=== PATIENT | male | born 1980 | race Caucasian/White ===

== ENCOUNTER 2024-03-09 18:54 | Inpatient (IN) ==
[2024-03-09] MEDS: ASPIRIN CHEW 324 MG PO STA (19:20)
[2024-03-09 19:21] LABS: Basophils # (auto) 0.04 K/uL (0.00-0.20); Basophils % (auto) 0.4 %; Eosinophils # (auto) 0.12 K/uL (0.00-0.50); Eosinophils % (auto) 1.3 %; Immature Granulocytes # (auto) 0.02 K/uL (0.01-0.20); Immature Granulocytes % (auto) 0.2 %; Lymphocytes # (auto) 3.58 K/uL (1.20-3.40); Lymphocytes % (auto) 38.1 %; Mean Corpuscular Hemoglobin 29.9 pg (25.0-34.0); Mean Corpuscular Hgb Conc 34.1 g/dL (32.0-36.0); Mean Corpuscular Volume 87.8 fL (80.0-100.0); Mean Platelet Volume 10.3 fL (9.4-12.4); Monocytes % (auto) 8.5 %; Neutrophils # (auto) 4.83 K/uL (1.40-6.50); Neutrophils % (auto) 51.5 %; Platelet Count 233 K/uL (130-400); RDW Coefficient of Variation 12.9 % (11.5-14.5); RDW Standard Deviation 41.3 fL (36.4-46.3); Red Blood Count 5.01 M/uL (4.70-6.10); White Blood Count 9.39 K/ul (4.8-10.8)
[2024-03-09] MEDS: fentaNYL citrate PF 100 MCG/2 ML VIAL ONE ×2 (19:27→20:18)
[2024-03-09] MEDS: ONDANSETRON INJ 2 MG/ML 2 ML VIAL ONE (19:27)
[2024-03-09] MEDS: fentaNYL citrate PF 100 MCG/2 ML VIAL IV PRN (19:29)
[2024-03-09] MEDS: ONDANSETRON INJ 2 MG/ML 2 ML VIAL IV STA (19:30)
--- NOTE | 2024-03-09 19:32 | Emergency Department Note ---
Impression & Plan Acute lateral wall myocardial infarction, Chest pain ED Provider Note NAME: ANGIE ROMERO AGE: 43 SEX: M : 1980 ARRIVES VIA: Walk-In INFORMANT: Patient, ED PROVIDER(S): Jaswant Mae DO CHIEF COMPLAINT: Chest pain HPI: The patient is a 43-year-old male who presented to the emergency department for an evaluation of chest pain. The patient states he has anterior chest pain that goes into his neck and into his jaw. He also states his pain goes into his bilateral upper extremities. The patient denies having any shortness of breath or diaphoresis. He has been mowing grass all day on a riding mower. He denies having any lower extremity swelling or pain. The patient states the pain began approximately 5 PM. He came to the emergency department with his significant other through triage. ROS: See above HPI for pertinent positives & negatives. A total of 10 systems reviewed and were otherwise negative. PAST MEDICAL HISTORY: See Below PAST SURGICAL HISTORY: See Below FAMILY HISTORY: See Below SOCIAL HISTORY: See Below HOME MEDICATIONS: See Below ALLERGIES: See Below VITALS: See Below PHYSICAL EXAMINATION: GENERAL: The patient is awake and alert. The patient is somewhat anxious appearing EYES: The conjunctivae are clear. The pupils are round and reactive. EARS, NOSE, MOUTH AND THROAT: The nose is without any evidence of any deformity. NECK: The neck is nontender and supple. RESPIRATORY: Normal respiratory effort is noted there is no evidence of wheezing rhonchi or rales CARDIOVASCULAR: Regular rate and rhythm noted there no murmurs rubs or gallops normal S1 normal S2. GASTROINTESTINAL: The abdomen is soft. Abdomen is nontender. MUSCULOSKELETAL/EXTREMITIES: There is no evidence of gross deformity full range of motion is noted in the hips and shoulders. SKIN: There is no obvious evidence of any rash. There are no petechiae, pallor or cyanosis noted. NEUROLOGIC: Patient is awake alert and oriented x3 MEDICAL DECISION MAKING: The patient is a 43-year-old male who presented to the emergency department through triage for an evaluation of chest pain. The patient had an EKG in triage. This was found to be abnormal and the nursing staff brought the EKG to the doctor station. The EKG was identified as abnormal and the patient was brought directly to room B1 and he was made a heart alert. I discussed the patient's laboratory and radiographic studies with him. I discussed patient's presentation with the bag cutter as well as the on-call [facility]. The patient was evaluated in the emergency department by the bag cutter. He was felt to be a good candidate for cardiac catheterization. The patient was agreeable with this plan. He was treated with aspirin as well as fentanyl and Zofran. He was also given Brilinta in the emergency department after he was evaluated by the culinary specialist. The patient was somewhat improved in the emergency department. A second EKG was obtained which showed continued ischemic changes. Triage Nursing notes reviewed. Prior medical records reviewed Vital Signs: reviewed and remarkable for no significant abnormalities Differential diagnosis: Cardiac ischemia, aortic dissection, pulmonary embolism, pneumothorax, pneumonia, pericarditis, myocarditis, esophageal rupture, GERD, cholecystitis, pancreatitis, musculoskeletal, as well as other pathologies. ER treatment provided: See below Diagnostics interpreted by me: ECG: EKG was obtained in the emergency department. My interpretation is normal sinus rhythm at 84 bpm. There is no ectopy. ST segment depressions were noted in the inferior and apical leads. There was subtle ST elevation in the high lateral leads. This appears to be consistent with acute lateral wall DE with reciprocal changes. No previous tracing was available A second EKG was obtained in the emergency department. My interpretation is normal sinus rhythm at 91 bpm. There is no ectopy. Increasing ST segment elevation was noted in the high lateral lead with reciprocal changes now noted in the inferior apical and low lateral leads. This appears to be consistent with a lateral wall DE. Cardiac Monitoring: An order was placed for continuous cardiac monitoring. The monitor shows a rate of 80 bpm with sinus rhythm. Laboratory studies: As stated above and show below. Imaging studies: See below. Radiographic imaging was reviewed by myself Consultation(s): I discussed this case with Dr. Gabriel who is on-call for cardiac catheterization. I discussed this case with Dr. Rowley who is on-call for [facility] ED COURSE: Procedures: none Critical Care: I have personally spent greater than 35 minutes of critical care time in the direct management of this patient. This includes bedside care, interpretation of diagnostic studies, and testing, discussion with consultants, patient, and family members, and other required patient management activities. This 35 minutes is in excess of all separately billable procedures. Past Med/Surg History Medical History (Updated 03/09/24 @ 23:07 by Jaswant Mae DO) Hypertension CHRISTEL (obstructive sleep apnea) GERD (gastroesophageal reflux disease) Abscess of left groin Family History (Updated 03/09/24 @ 21:06 by SUMANTH Andrea) Other Lung disease Myocardial infarction Social History Smoking Status: Current every day smoker Tobacco Type: Cigarettes Cigarettes Per Day: 20; Hx Alcohol Use: Yes Alcohol type: beer Hx Substance Use: No Preferred Language: [place] Assistant Spa Manager Required: No Beliefs That Will Affect Care: None Current Living Situation: Spouse and Family Other Information That Helps Us Care for You: No Feels Safe at Home: Yes Safety Concerns: Feels Safe At This Time Allergies Allergies Allergy/AdvReac Type Severity Reaction Status Date / Time No Known Allergies Allergy Verified 12/06/22 17:44 Home Meds Home Medications Medication Instructions Recorded Confirmed amlodipine 10 mg tablet 10 mg PO DAILY 12/06/22 12/06/22 omeprazole magnesium 20 mg 20 mg PO DAILY PRN 12/06/22 12/06/22 tablet,delayed release (Prilosec HEARTBURN/INDIGESTION OTC) Previous Rx's Medication Instructions Recorded ondansetron HCl 4 mg tablet 4 mg PO Q6H PRN nausea and 12/06/22 vomiting #10 tabs Results & Data (ED) Vital Signs Vital Signs - 24 hr 03/09/24 18:56 03/09/24 18:59 03/09/24 19:18 Temperature 37 C Temperature Source Temporal Artery Scan Pulse Rate 95 H 99 H 98 H Pulse Rate from SpO2 Sensor Pulse Rhythm Regular Respiratory Rate 18 22 Respiratory Effort / Characteristics Non-Labored Respiratory Depth Normal Blood Pressure 171/94 H Blood Pressure Mean 119 Pulse Oximetry 98 99 Oxygen Delivery Method Room Air Room Air Sepsis Recent Fever Within 48 Hours No Sepsis New/Unexplained Change in Mental Status No Sepsis Action Taken by Nursing No Action Required 03/09/24 19:18 03/09/24 19:18 03/09/24 19:20 Temperature Temperature Source Pulse Rate 97 H 100 H Pulse Rate from SpO2 Sensor 98 H 102 H Pulse Rhythm Respiratory Rate 13 22 Respiratory Effort / Characteristics Respiratory Depth Blood Pressure 157/90 H Blood Pressure Mean 104 Pulse Oximetry 99 99 Oxygen Delivery Method Sepsis Recent Fever Within 48 Hours Sepsis New/Unexplained Change in Mental Status Sepsis Action Taken by Nursing 03/09/24 19:23 03/09/24 19:30 03/09/24 19:31 Temperature Temperature Source Pulse Rate 94 H Pulse Rate from SpO2 Sensor 94 H Pulse Rhythm Respiratory Rate 15 Respiratory Effort / Characteristics Respiratory Depth Blood Pressure 142/96 H Blood Pressure Mean 130 Pulse Oximetry 99 98 Oxygen Delivery Method Room Air Sepsis Recent Fever Within 48 Hours Sepsis New/Unexplained Change in Mental Status Sepsis Action Taken by Nursing 03/09/24 19:31 Temperature Temperature Source Pulse Rate 92 H Pulse Rate from SpO2 Sensor 91 H Pulse Rhythm Respiratory Rate 18 Respiratory Effort / Characteristics Respiratory Depth Blood Pressure Blood Pressure Mean Pulse Oximetry 99 Oxygen Delivery Method Sepsis Recent Fever Within 48 Hours Sepsis New/Unexplained Change in Mental Status Sepsis Action Taken by Assisted Medications Current Medication List: was personally reviewed by me Laboratory Data Attestation: I reviewed the patient's lab results. 03/09/24 19:04 03/09/24 19:04 Lab Results 03/09/24 Range/Units 19:04 WBC 9.39 (4.8-10.8) K/ul RBC 5.01 (4.70-6.10) M/uL Hgb 15.0 (14.0-18.0) g/dl Hct 44.0 (42.0-52.0) % MCV 87.8 (80.0-100.0) fL MCH 29.9 (25.0-34.0) pg MCHC 34.1 (32.0-36.0) g/dL RDW Std Deviation 41.3 (36.4-46.3) fL RDW Coeff of Evelyne 12.9 (11.5-14.5) % Plt Count 233 (130-400) K/uL MPV 10.3 (9.4-12.4) fL Immature Gran % (Auto) 0.2 % Neut % (Auto) 51.5 % Lymph % (Auto) 38.1 % [place] % (Auto) 8.5 % Eos % (Auto) 1.3 % Baso % (Auto) 0.4 % Neut # (Auto) 4.83 (1.40-6.50) K/uL Lymph # (Auto) 3.58 H (1.20-3.40) K/uL [place] # (Auto) 0.80 H (0.11-0.59) K/uL Eos # (Auto) 0.12 (0.00-0.50) K/uL Baso # (Auto) 0.04 (0.00-0.20) K/uL Immature Gran # (Auto) 0.02 (0.01-0.20) K/uL Sodium 136 (136-145) mmol/L Potassium 3.3 L (3.5-5.1) mmol/L Chloride 101 (98-107) mmol/L Carbon Dioxide 26 (21-32) mmol/L Anion Gap 9 (3-11) BUN 10 (6-23) mg/dl Creatinine 0.78 (0.6-1.4) mg/dl Est Cr Clr Drug Dosing 144.4 ml/min Est GFR ( Amer) 126.3 ml/min Est GFR (Non-Af Amer) 109.0 ml/min BUN/Creatinine Ratio 12.8 (10-20) Glucose 106 H (70-99(Fasting)) mg/dl Calcium 9.1 (8.6-10.3) mg/dl Total Bilirubin 0.7 (0.2-1.0) mg/dl AST 12 L (13-39) U/L ALT 9 (7-52) U/L Alkaline Phosphatase 51 (34-104) U/L Troponin I High Sens 12.7 (0-20) pg/ml Total Protein 7.4 (6.0-8.3) gm/dl Albumin 4.6 (3.4-5.0) gm/dl Globulin 2.8 (2.5-4.0) gm/dl Albumin/Globulin Ratio 1.6 (0.9-2) Lipase 17 (11-82) U/L Administered Medications Fentanyl Citrate (Fentanyl Citrate Pf 100 Mcg/2 Ml Vial) 50 mcg IV Q15M PRN PRN Reason: Pain Stop: 03/23/24 19:23 Last Admin: 03/09/24 19:29 Dose: 50 mcg Documented By: MADELINW Insulin Aspart (Insulin Aspart Per Unit Charge) 0 units SC ACHS [facility] Stop: 04/08/24 20:59 Last Admin: 03/09/24 21:46 Dose: Not Given Documented By: CF Metoprolol Tartrate (Metoprolol Tartrate 25 Mg Tab) 12.5 mg PO BID [facility] Stop: 04/08/24 20:59 Last Admin: 03/09/24 21:39 Dose: 12.5 mg Documented By: BELKIS Discontinued Medications Aspirin (Aspirin Chew 324 Mg) 324 mg PO NOW STA Stop: 03/09/24 19:11 Last Admin: 03/09/24 19:20 Dose: 324 mg Documented By: HUAN Fentanyl Citrate (Fentanyl Citrate Pf 100 Mcg/2 Ml Vial) Confirm Administered Dose 100 mcg .ROUTE .STK-MED ONE Stop: 03/09/24 19:27 Last Admin: 03/09/24 19:27 Dose: Not Given Documented By: HUAN Fentanyl Citrate (Fentanyl Citrate Pf 100 Mcg/2 Ml Vial) Confirm Administered Dose 100 mcg .ROUTE .STK-MED ONE Stop: 03/09/24 19:35 Last Increment: 03/09/24 20:18 Dose: 50 mcg Documented By: CHANCE Heparin Sodium (Porcine) (Heparin (Porcine) 1000 Unit/Ml 10 Ml ([place] Etl Developer Use Only)) Confirm Administered Dose 10,000 units .ROUTE .STK-MED ONE Stop: 03/09/24 19:35 Last Admin: 03/09/24 20:18 Dose: 10,000 units Documented By: CHANCE Heparin Sodium (Porcine) (Heparin (Porcine) 1000 Unit/Ml 10 Ml ([employer] Etl Developer Use Only)) Confirm Administered Dose 10,000 units .ROUTE .STK-MED ONE Stop: 03/09/24 20:18 Last Admin: 03/09/24 20:19 Dose: 1,000 units Documented By: CHANCE Heparin Sodium/Sodium Chloride (Heparin In Nss Infusion 1000 Unit/500 Ml (2 U/Ml) Bag) Confirm Administered Dose 3,000 units IV .STK-MED ONE Stop: 03/09/24 19:35 Last Admin: 03/09/24 20:58 Dose: Not Given Documented By: BELKIS Ioversol (Optiray 350) Confirm Administered Dose 1 ml .ROUTE .STK-MED ONE Stop: 03/09/24 19:36 Last Admin: 03/09/24 20:37 Dose: 150 ml Documented By: TRU Lidocaine HCl (Lidocaine 1% Local 20 Ml Vial) Confirm Administered Dose 1 ml .ROUTE .STK-MED ONE Stop: 03/09/24 19:39 Last Admin: 03/09/24 20:08 Dose: 1 ml Documented By: TRU Midazolam HCl (Midazolam Hcl 1 Mg/Ml 2ml Vial) Confirm Administered Dose 2 mg .ROUTE .STK-MED ONE Stop: 03/09/24 19:34 Last Admin: 03/09/24 20:18 Dose: 2 mg Documented By: CHANCE Nicardipine HCl (Nicardipine Hcl Inj 2.5 Mg/Ml 10 Ml Amp) Confirm Administered Dose 25 mg .ROUTE .STK-MED ONE Stop: 03/09/24 19:35 Last Admin: 03/09/24 20:09 Dose: 25 mg Documented By: TRU Nitroglycerin/Dextrose (Nitroglycerin/D5w 100mcg/Ml 20ml Syr) Confirm Administered Dose 2,000 mcg .ROUTE .STK-MED ONE Stop: 03/09/24 19:36 Last Admin: 03/09/24 20:08 Dose: 2,000 mcg Documented By: TRU Ondansetron HCl (Ondansetron Inj 2 Mg/Ml 2 Ml Vial) 4 mg IV NOW STA Stop: 03/09/24 19:25 Last Admin: 03/09/24 19:30 Dose: 4 mg Documented By: HUAN Ondansetron HCl (Ondansetron Inj 2 Mg/Ml 2 Ml Vial) Confirm Administered Dose 4 mg .ROUTE .STK-MED ONE Stop: 03/09/24 19:27 Last Admin: 03/09/24 19:27 Dose: Not Given Documented By: HUAN Potassium Chloride (Potassium Chloride Crtab 20 Meq Tabcr) 40 meq PO NOW STA Stop: 03/09/24 21:16 Last Admin: 03/09/24 21:39 Dose: 40 meq Documented By: BELKIS Ticagrelor (Ticagrelor 90 Mg Tab) Confirm Administered Dose 90 mg .ROUTE .STK- MED ONE Stop: 03/09/24 19:26 Last Admin: 03/09/24 19:35 Dose: 90 mg Documented By: HUAN Ticagrelor (Ticagrelor 90 Mg Tab) Confirm Administered Dose 90 mg .ROUTE .STK- MED ONE Stop: 03/09/24 19:48 Last Admin: 03/09/24 20:08 Dose: 90 mg Documented By: MANUFACTURING MANAGEMENT ASSOCIATE Imaging Data Attestation: I personally reviewed and interpreted this imaging study as follows: My Impression: 1 view chest x-ray was obtained in the emergency department. My interpretation is no definite infiltrate or free air, final report pending. Discharge Plan Visit Data Chief Complaint: Chest Pain Stated Complaint: CHEST PAIN, BACK OF NECK PAIN, ARM PAIN ED Provider: Jaswant Mae Discharge Problem: Acute lateral wall myocardial infarction, Chest pain Patient Disposition: Admitted As Inpatient Discharge Instructions Interventions: ED Discharge Assessment Last Done: 03/09/24 19:45 Discharge Problem: Chest pain Qualifiers: Chest pain type: unspecified Qualified Code(s): R07.9 - Chest pain, unspecified
[2024-03-09] MEDS: TICAGRELOR 90 MG TAB ONE ×2 (19:35→20:08)
[2024-03-09 19:37] LABS: Albumin Globulin Ratio 1.6 (0.9-2); Albumin Level 4.6 gm/dl (3.4-5.0); BUN Creatinine Ratio 12.8 (10-20); Bilirubin,Total 0.7 mg/dl (0.2-1.0); Calcium 9.1 mg/dl (8.6-10.3); Creatinine Clr Calc Pharmacy 144.4 ml/min; Est GFR (African American) 126.3 ml/min; Globulin 2.8 gm/dl (2.5-4.0); Potassium 3.3 mmol/L (3.5-5.1); Total Protein 7.4 gm/dl (6.0-8.3)
[2024-03-09 19:43] LABS: Troponin I High Sensitivity 12.7 pg/ml (0-20)
--- NOTE | 2024-03-09 19:49 | Pre Anesthesia Assessment ---
Date of Service March 09, 2024 Pre Sedation Assessment Vital Signs Temp Pulse Resp BP Pulse Ox O2 Del Method 03/09/24 19:31 92 H 18 99 03/09/24 19:31 142/96 H 03/09/24 19:30 94 H 15 98 03/09/24 19:23 99 Room Air 03/09/24 19:20 100 H 22 99 03/09/24 19:18 97 H 13 99 03/09/24 19:18 157/90 H 03/09/24 19:18 98 H 03/09/24 18:59 99 H 22 99 Room Air 03/09/24 18:56 98.6 F 95 H 18 171/94 H 98 Room Air Cardiovascular + regular rate Respiratory + respiratory effort normal Pre-Sedation Airway Assessment Smoking Status: Current every day smoker ASA: ASA3 Notes The planned sedation has been discussed with the patient. Informed Consent was obtained. I have identified the patient, determined the appropriateness of sedation and have assessed the patient immediately prior to the procedure. All medicine(s) and interventions are by my order.
--- NOTE | 2024-03-09 19:53 | Cardiology Consultation ---
Date of Consultation March 09, 2024 Assessment & Plan (1) Acute NH: Presentation consistent with lateral STEMI and recommend proceeding with emergent cardiac catheterization and likely primary PCI. No apparent contraindications to procedure. Discussed risks, benefits, alternatives of procedure with patient and they are willing to proceed. Further recommendations pending findings of coronary angiography. History of Present Illness Attending Physician: Tucker Gabriel MD History of Present Illness 43-year-old man here with acute chest pain and ECG concerning for acute NH. Patient seen emergently in the ED after heart alert activated after second ECG. No prior cardiac history. Cardiac risk factors include hypertension, ongoing smoking. Also with a history of GERD. Chest pain began approximately 5:30 PM around 90 minutes prior to arrival while mowing the lawn with a riding mower. Describes substernal chest tightness radiating down both arms (left greater than sign right) and up into his jaw. Denies similar symptoms in the past. Pain at its worst 7 out of 10. Pain after nitroglycerin, aspirin, fentanyl 5 out of 10. Hemodynamically stable. EKG showed sinus rhythm with lateral ST elevations. Family history: No premature CAD Social history: , 3 kids. 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 [employer] Allergies Allergy/AdvReac Type Severity Reaction Status Date / Time No Known Allergies Allergy Verified 12/06/22 17:44 Home Medications Medication Instructions Recorded Confirmed Type amlodipine 10 mg tablet 10 mg PO DAILY 12/06/22 12/06/22 History omeprazole magnesium 20 mg 20 mg PO DAILY PRN 12/06/22 12/06/22 History tablet,delayed release (Prilosec HEARTBURN/INDIGESTION OTC) ondansetron HCl 4 mg tablet 4 mg PO Q6H PRN nausea and 12/06/22 Rx vomiting #10 tabs Patient History Medical History Hypertension Abscess of left groin Social History Smoking Status: Current every day smoker Tobacco Type: Cigarettes Preferred Language: Samoan Feels Safe at Home: Yes Review of Systems Review of Systems: Not obtained in the setting of emergent situation Physical Exam Physical Exam: General: Uncomfortable HEENT: Sclerae anicteric Lungs: Clear to auscultation anteriorly Cardiac: Regular rate and rhythm, no murmurs. Vascular: 2+ radial Abdomen: Soft, nontender Extremities: Well perfused, no peripheral edema Neuro: Nonfocal Psych: Alert orient x3, normal affect and mood Results & Data Vital Signs (Past 12 Hours) Vital Signs Temp Pulse Resp BP Pulse Ox O2 Del Method 03/09/24 19:31 92 H 18 99 03/09/24 19:31 142/96 H 03/09/24 19:30 94 H 15 98 03/09/24 19:23 99 Room Air 03/09/24 19:20 100 H 22 99 03/09/24 19:18 97 H 13 99 03/09/24 19:18 157/90 H 03/09/24 19:18 98 H 03/09/24 18:59 99 H 22 99 Room Air 03/09/24 18:56 98.6 F 95 H 18 171/94 H 98 Room Air PG Care Time/CCT Total # of Minutes Spent Total Time Spent with Patient: Total time spent is greater than 50% in coordination of care (as documented) at patient's floor/unit and/or counseling patient: Coding Level of Care Code 59844 OFFICE CONSULT LVL Diagnoses Acute NH I21.9
[2024-03-09] MEDS: LIDOCAINE 1% LOCAL 20 ML VIAL ONE (20:08)
[2024-03-09] MEDS: NITROGLYCERIN/D5W 100MCG/ML 20ML SYR ONE (20:08)
[2024-03-09] MEDS: niCARdipine HCL INJ 2.5 MG/ML 10 ML AMP ONE (20:09)
[2024-03-09] MEDS: MIDAZOLAM HCL 1 MG/ML 2ML VIAL ONE (20:18)
[2024-03-09] MEDS: HEPARIN (PORCINE) 1000 UNIT/ML 10 ML (CATH LAB USE ONLY) ONE ×2 (20:18→20:19)
[2024-03-09] MEDS: OPTIRAY 350 ONE (20:37)
[2024-03-09] MEDS ORDERED: ACETAMINOPHEN 325 MG TAB PO PRN (20:40)
--- NOTE | 2024-03-09 20:48 | Post Anesthesia Assessment ---
Date of Service March 09, 2024 Post Sedation Assessment Vital Signs Temp Pulse Resp BP Pulse Ox O2 Del Method 03/09/24 19:31 92 H 18 99 03/09/24 19:31 142/96 H 03/09/24 19:30 94 H 15 98 03/09/24 19:23 99 Room Air 03/09/24 19:20 100 H 22 99 03/09/24 19:18 97 H 13 99 03/09/24 19:18 157/90 H 03/09/24 19:18 98 H 03/09/24 18:59 99 H 22 99 Room Air 03/09/24 18:56 98.6 F 95 H 18 171/94 H 98 Room Air Recovery Score Activity: Moves 4 extremities Respiration: Deep Breath/Cough Circulation: +/-20% PreAnes Value Consciousness: Fully Awake Oxygen Saturation: O2 needed for >90% Discharge Sedation Level of Care: Fast Track Phase II Post Sedation Plan On clinical assessment, the patient appears to have tolerated the sedation without complications. Patient is recovering as anticipated. Patient will continue to be monitored by nursing and may be discharged when sedation discharge criteria are met per below protocol. Upon Completions of procedure up to 15 minutes continue every 5 minute vital signs and the P.A.R. score; then discharge to a Phase I or Fast Track to Phase II per the following guidelines: * Discharge Patient to appropriate Phase II area if PAR is 8 or greater or return to pre- procedure baseline. The post - procedure orders will be as directed. * If PAR score is less than 8 or not return to pre-procedure baseline then patient will follow Phase I monitoring till PAR is reached for Phase II. The Phase I may be done in procedure room or may call to secure a Phase I area. * If naloxone or flumazenil are used for reversal, hold in Phase I for continued monitoring from when last reversal dose was given for a minimum of 60 minutes or longer pending the nurse and/or physician discretion of patient condition before discharge to Phase II. Please call the Sedation Physician to re-evaluate and complete post-note for discharge to Phase II area. Do NOT discharge from procedure sedation or Phase 1 until post- sedation evaluation note is complete by procedure /sedation MD Sedation Discharge Instructions to be given to the patient at discharge to home.
[2024-03-09] MEDS ORDERED: DEXTROSE 50% 50 ML SYRINGE IV PRN (20:50)
[2024-03-09] MEDS ORDERED: GLUCOSE 40% GEL 15 GM TUBE PO PRN (20:50)
[2024-03-09] MEDS ORDERED: GLUCOSE 10 TAB/TUBE PO PRN (20:50)
[2024-03-09] MEDS ORDERED: GLUCAGON FOR INJ 1 MG VIAL SQ PRN (20:50)
[2024-03-09] MEDS ORDERED: CARBOHYDRATES FOR HYPOGLYCEMIA PO PRN (20:50)
--- NOTE | 2024-03-09 20:56 | Cardiac Catheterization ---
[facility] Data: Hospital Aide Cardiac Status Clinical evaluation leading to the procedure CAD Presenation: STEMI Anginal Classification: CCS IV Diagnostic Physicians Name: Tucker Gabriel MD Closure Device Recommendations: PCI without planned CABG Cardiac Cath Procedure Full Procedure Date March 09, 2024 Pre-Procedure Diagnosis Pre-Procedure Diagnosis: STEMI AUC Score AUC Score: 9 Post-Procedure Diagnosis Post-Procedure Diagnosis: Severe CAD and Successful PCI Procedure(s) Performed Procedure(s) Performed: Coronary Angiography, Left Heart Cath, Drug Eluting Stent and Ultrasound Guided Vascular Access Skin Fitter Tucker Gabriel MD National Account Representative(s) [place] Estimated Blood Loss Estimated Blood Loss: 5 Medication(s) Medication(s): Fentanyl, Heparin, Lidocaine 1%, Nicardipine, Nitroglycerin and Versed Medication(s): Ticagrelor Summary of Findings Indication: STEMI/Heart Alert Access: 6 Fr right radial artery under ultrasound guidance Catheters: EBU 3.5 guide, diagnostic JR4 Findings: LM -normal caliber, no significant disease LAD -large caliber vessel, 30-40% proximal stenosis at takeoff of D1. Mid and distal LAD without significant disease and wraps around apex. Medium caliber D1 acute 100% proximal occlusion. Circumflex -large caliber vessel, 30% mid segment disease. Large OM1 without significant disease. Large OM 2 without disease. RCA -medium caliber, dominant, angiographically normal. RPDA, RPL without significant disease. LVEDP -18 -- PCI -- Antithrombotic therapy: Heparin, ticagrelor Procedure: Left main cannulated with EBU 3.5 guide Inspector Tubes 50 wire passed across lesion into distal vessel Proximal D1 lesion predilated with 2.5 compliant balloon Dilated lesion stented with 2.5 x 15 mm Ramone drug-eluting stent Stent post-dilated with 2.75 noncompliant balloon IC vasodilators administered for spasm Post procedure KEVIN 3 flow, stent well expanded with minimal residual stenosis and no apparent cardiac complications. Arterial Closure: TR band Summary: 1. Acute 100% proximal first diagonal 2. Mild non-culprit coronary artery disease -30-40% proximal LAD 30% mid circumflex 3. Borderline intracardiac filling pressure 4. Successful PCI of proximal first diagonal branch with single drug-eluting stent (2.5 x 15 mm [place]; postdilated with 2.75 NC). Recommendations: Admit to ICU for continued monitoring Loaded with ticagrelor 180 mg in Hospital Aide Continue dual-antiplatelet therapy for at least 1 year. Trend troponins until peak, Check Echo Uptitrate beta-brianna/JAY as BP allows High-dose statin Consult cardiac Rehab Hemodynamics Rest Ao:: 106/63/75 Final Ao: 116/78/101 LV: 119/18 Recommendations Recommendations: PCI without planned CABG Specimens Specimens: None Radiation Exposure (mGy) 1733 Contrast (mls) 150 Procedural Complication(s) None Disposition ICU I attest to the content of the Intraoperative Record and any orders documented therein. Any exceptions are noted below. [facility] Card Cath Procedure Codes Cardiac Catheterization Procedure 1: Cardiovascular Cath Procedures: 55136 Coronaries and LHC (+/-LV) Therapeutic Services & Ancillary Procedure 1: Cardiovascular Tx and Anc Procedures: 74096 Ultrasonic Guidance Vascular Access Moderate Sedation Procedure 1: Sedation/Anesthesia: 04893 Mod Sedation by the same physician;Init15 Min Child Age 5 & Up Procedure 2: Sedation/Anesthesia: 65835 Mod Sedation by the same physician; Ea [id number] Minutes Stenting Procedure 1: Cardiovascular Stent Procedures: 77900 Perc transluminal revascularization of acute sub/total occl, aMI PG Care Time/CCT Total # of Minutes Spent Total Time Spent with Patient: Total time spent is greater than 50% in coordination of care (as documented) at patient's floor/unit and/or counseling patient:
--- NOTE | 2024-03-09 21:17 | Critical Care Consultation ---
Date of Consultation March 09, 2024 Assessment & Plan (1) Acute AZ: (2) CHRISTEL (obstructive sleep apnea): (3) Hypertension: (4) Smoker: Plan Reason Critically Ill: 43 YOM presents to the ICU post PCI and TANVI to diagnoal secondary to STEMI Neuro - NO acute needs CAM ICU: Negative Cardiac - Acute STEMI, HTN, HLD, CAD - Post PCI and TANVI to diagonal- currently chest pain free - BB, high intensity statin, JAY, initiated by cardiology service - DAPT therapy with ASA and Brilinta initiated by cardiology- initial notes rec 12 month therapy - ECHO in morning - Follow hemodynamics and rhythms through PM- trend troponin to peak - further management on risk reduction strategy Respiratory - Smoker, CHRISTEL - Current smoker - will need smoking cessation - Educated on need to avoid smoking following TANVI - Offer Nicotene patch if needed - ON CPAP nasal 10CM H20 at home- patient reports he has not worn this in a long time- re-educated on overall mortality reduction GI - GERD - Continue PPI RENAL/LYTES - NO acute needs - ICU electrolyte protocol - NO acute needs ENDO - NO acute needs - HGB A1c in am- adjust therapies as indicated HEME - No acute needs ID - NO concern at this time for infective process LINES/IV ACCESS - PIV, Right TR BAND site Continue use of these lines DVT PROPHYLAXIS - SCDS DISPO: ICU until hemodynamics and rhythm proven stable post PCI I have personally spent 45 minutes of critical care time in the direct management of this patient. This is a life/limb threatening event. This includes time spent evaluating patient, direct bedside care, chart review, placing orders, interpretation of diagnostic studies, discussion with consultants, patient, and family members, as well as other required patient management activities. This time is exclusive of all separately billable procedures, and separate from and in addition to any other critical care service time. Thank you for allowing us to participate in the care of this patient. Please refer to my attending physician's documentation for any further recommendations. History of Present Illness Reason for Consultation: STEMI post PCI to diagonal Requesting Physician: Tucker Gabriel MD Attending Physician: Joe Rowley MD History of Present Illness 43 YOM current 1ppd smoker, with medical history of: HTN, GERD, CHRISTEL non compliant with home CPAP. Family history of Grandfather with AZ in 50s that he from. Patient reports that he had onset of chest pain today around 1700- 1730. The pain was located in the center of his chest and felt like "two fists squeezing and pressing", the pain then radiated to his left arm and half his right arm. This continued to progress to his neck and jaw. It was not associated with any nausea, vomiting, or difficulty breathing. He has never had this type of pain before. He feels at worst his pain got was 7/10 but mostly stayed in the 5 range. He was evaluated in the EMD and was noted to have ST elevations in lateral (I AVL) and reciprocal changes to inferior leads. He was given asa, nitro, and fentanyl for pain, and loaded on Brilinta. Heart alert was called and patient was taken urgently to the medical laboratory technician, where he underwent angiography. He did get PCI with TANVI to the diagonal. He was noted to have mild other non-culprit coronary artery disease. LVEDP was 18. Patient arrived to the ICU awake and alert, hemodynamically stable on no vasoactive medications. He is currently pain free. CODE: FULL Allergies Allergy/AdvReac Type Severity Reaction Status Date / Time No Known Allergies Allergy Verified 12/06/22 17:44 Home Medications Medication Instructions Recorded Confirmed Type amlodipine 10 mg tablet 10 mg PO DAILY 12/06/22 12/06/22 History omeprazole magnesium 20 mg 20 mg PO DAILY PRN 12/06/22 12/06/22 History tablet,delayed release (Prilosec HEARTBURN/INDIGESTION OTC) ondansetron HCl 4 mg tablet 4 mg PO Q6H PRN nausea and 12/06/22 Rx vomiting #10 tabs ticagrelor 90 mg tablet (Brilinta) 90 mg PO BID #60 tabs 03/10/24 Rx Patient History Medical History (Updated 03/09/24 @ 23:07 by Jaswant Mae DO) Hypertension CHRISTEL (obstructive sleep apnea) GERD (gastroesophageal reflux disease) Abscess of left groin Family History (Updated 03/09/24 @ 21:06 by SUMANTH Andrea) Other Lung disease Myocardial infarction Social History Smoking Status: Current every day smoker Tobacco Type: Cigarettes Cigarettes Per Day: 20; Hx Alcohol Use: Yes Alcohol type: beer Hx Substance Use: No Preferred Language: Kiswahili Instructional Design Specialist Required: No Beliefs That Will Affect Care: None Current Living Situation: Spouse and Family Feels Safe at Home: Yes Review of Systems Review of Systems: REVIEW OF SYSTEMS: Constitutional: No fever, sweats or chills Eyes: No diplopia, no worsening or blurred vision ENT: normal hearing, no trouble swallowing Respiratory: (+) chronic cough and dyspnea, smoker Cardiovascular: (+) chest pain- resolved, Abdomen: No pain, nausea, vomiting, diarrhea or constipation Musculoskeletal: No joint pain, calf pain, swelling Neurologic: No weakness, numbness/tingling, or balance problems Psychiatric: No anxiety or depression Skin: No rash or itch Physical Exam Physical Exam: PHYSICAL EXAM: General: awake, alert, no apparent distress Head: Normocephalic, atraumatic ENT: PERRL, EOMI, no pharyngeal exudate, mucous membranes moist Neuro: AAO x 3, speech clear and appropriate, strength intact bilaterally 5/5, sensation intact and equal all extremities and dermatomes, no pronator drift Chest: equal rise and fall of the chest, no accessory muscle use, no heaves or thrills, Clear to auscultation, on room air, Cardiac: Regular rate and rhythm, telemetry reviewed- NSR no ectopy, skin warm dry, cap refill <3 seconds, peripheral pulses +2 no JVD, no murmur, no edema, right radial TR band in place CV/NV status of right hand and fingers is normal. GI: NABS x 4 quadrants, soft, nontender to palpation, no rebound, guarding or tenderness : Spontaneously voiding, no pain, no CVA tenderness, Extremities: Normal inspection, no peripheral edema or erythema, calfs nontender to palpation Psych: Normal mood and affect Skin: no rash or erythema Results & Data Results & Data Vital Signs (Past 12 Hours) Vital Signs Temp Pulse Resp BP Pulse Ox O2 Del Method 03/09/24 19:31 92 H 18 99 03/09/24 19:31 142/96 H 03/09/24 19:30 94 H 15 98 03/09/24 19:23 99 Room Air 03/09/24 19:20 100 H 22 99 03/09/24 19:18 97 H 13 99 03/09/24 19:18 157/90 H 03/09/24 19:18 98 H 03/09/24 18:59 99 H 22 99 Room Air 03/09/24 18:56 37 C 95 H 18 171/94 H 98 Room Air Laboratory Results Abnormal lab results 03/09/24 03/09/24 03/09/24 Range/Units 19:04 20:13 20:26 Lymph # (Auto) 3.58 H (1.20-3.40) K/uL [place] # (Auto) 0.80 H (0.11-0.59) K/uL Activ Coag Time Kaolin 234 H 233 H (94-140) SECONDS Potassium 3.3 L (3.5-5.1) mmol/L Glucose 106 H (70-99(Fasting)) mg/dl AST 12 L (13-39) U/L Medications Administered Fentanyl Citrate (Fentanyl Citrate Pf 100 Mcg/2 Ml Vial) 50 mcg IV Q15M PRN PRN Reason: Pain Stop: 03/23/24 19:23 Last Admin: 03/09/24 19:29 Dose: 50 mcg Documented By: HUAN Discontinued Medications Aspirin (Aspirin Chew 324 Mg) 324 mg PO NOW STA Stop: 03/09/24 19:11 Last Admin: 03/09/24 19:20 Dose: 324 mg Documented By: HUAN Fentanyl Citrate (Fentanyl Citrate Pf 100 Mcg/2 Ml Vial) Confirm Administered Dose 100 mcg .ROUTE .STK-MED ONE Stop: 03/09/24 19:27 Last Admin: 03/09/24 19:27 Dose: Not Given Documented By: HUAN Fentanyl Citrate (Fentanyl Citrate Pf 100 Mcg/2 Ml Vial) Confirm Administered Dose 100 mcg .ROUTE .STK-MED ONE Stop: 03/09/24 19:35 Last Increment: 03/09/24 20:18 Dose: 50 mcg Documented By: CHANCE Heparin Sodium (Porcine) (Heparin (Porcine) 1000 Unit/Ml 10 Ml (Helpdesk Manager Use Only)) Confirm Administered Dose 10,000 units .ROUTE .STK-MED ONE Stop: 03/09/24 19:35 Last Admin: 03/09/24 20:18 Dose: 10,000 units Documented By: CHANCE Heparin Sodium (Porcine) (Heparin (Porcine) 1000 Unit/Ml 10 Ml (Helpdesk Manager Use Only)) Confirm Administered Dose 10,000 units .ROUTE .STK-MED ONE Stop: 03/09/24 20:18 Last Admin: 03/09/24 20:19 Dose: 1,000 units Documented By: CHANCE Heparin Sodium/Sodium Chloride (Heparin In Nss Infusion 1000 Unit/500 Ml (2 U/Ml) Bag) Confirm Administered Dose 3,000 units IV .STK-MED ONE Stop: 03/09/24 19:35 Last Admin: 03/09/24 20:58 Dose: Not Given Documented By: BELKIS Ioversol (Optiray 350) Confirm Administered Dose 1 ml .ROUTE .STK-MED ONE Stop: 03/09/24 19:36 Last Admin: 03/09/24 20:37 Dose: 150 ml Documented By: TUR Lidocaine HCl (Lidocaine 1% Local 20 Ml Vial) Confirm Administered Dose 1 ml .ROUTE .STK-MED ONE Stop: 03/09/24 19:39 Last Admin: 03/09/24 20:08 Dose: 1 ml Documented By: TRU Midazolam HCl (Midazolam Hcl 1 Mg/Ml 2ml Vial) Confirm Administered Dose 2 mg .ROUTE .STK-MED ONE Stop: 03/09/24 19:34 Last Admin: 03/09/24 20:18 Dose: 2 mg Documented By: CHANCE Nicardipine HCl (Nicardipine Hcl Inj 2.5 Mg/Ml 10 Ml Amp) Confirm Administered Dose 25 mg .ROUTE .STK-MED ONE Stop: 03/09/24 19:35 Last Admin: 03/09/24 20:09 Dose: 25 mg Documented By: TRU Nitroglycerin/Dextrose (Nitroglycerin/D5w 100mcg/Ml 20ml Syr) Confirm Administered Dose 2,000 mcg .ROUTE .STK-MED ONE Stop: 03/09/24 19:36 Last Admin: 03/09/24 20:08 Dose: 2,000 mcg Documented By: TRU Ondansetron HCl (Ondansetron Inj 2 Mg/Ml 2 Ml Vial) 4 mg IV NOW STA Stop: 03/09/24 19:25 Last Admin: 03/09/24 19:30 Dose: 4 mg Documented By: HUAN Ondansetron HCl (Ondansetron Inj 2 Mg/Ml 2 Ml Vial) Confirm Administered Dose 4 mg .ROUTE .STK-MED ONE Stop: 03/09/24 19:27 Last Admin: 03/09/24 19:27 Dose: Not Given Documented By: HUAN Ticagrelor (Ticagrelor 90 Mg Tab) Confirm Administered Dose 90 mg .ROUTE .STK- MED ONE Stop: 03/09/24 19:26 Last Admin: 03/09/24 19:35 Dose: 90 mg Documented By: HJW Ticagrelor (Ticagrelor 90 Mg Tab) Confirm Administered Dose 90 mg .ROUTE .STK- MED ONE Stop: 03/09/24 19:48 Last Admin: 03/09/24 20:08 Dose: 90 mg Documented By: BUTTON BROACHER ECG Additional Comments: Normal sinus rhythm Septal infarct , age undetermined Lateral injury pattern ACUTE AZ / STEMI Abnormal ECG When compared with ECG of 09-MAR-2024 19:01, (unconfirmed) No significant change was found Coding Level of Care Code 37679 CRITICAL CARE 1ST 30-74M Diagnoses Acute [place] I21.9 CHRISTEL (obstructive sleep apnea) G47.33 Hypertension I10 Smoker F17.200
[2024-03-09] MEDS: POTASSIUM CHLORIDE CRTAB 20 MEQ TABCR PO STA (21:39)
[2024-03-09] MEDS: METOPROLOL TARTRATE 25 MG TAB PO SCH (21:39)
[2024-03-09] MEDS: INSULIN ASPART PER UNIT CHARGE SC SCH (21:46)
[2024-03-10 04:52] LABS: Basophils # (auto) 0.03 K/uL (0.00-0.20); Basophils % (auto) 0.3 %; Eosinophils # (auto) 0.04 K/uL (0.00-0.50); Eosinophils % (auto) 0.3 %; Hematocrit (blood only) 43.1 % (42.0-52.0); Hemoglobin 14.3 g/dl (14.0-18.0); Immature Granulocytes # (auto) 0.04 K/uL (0.01-0.20); Immature Granulocytes % (auto) 0.3 %; Lymphocytes # (auto) 1.64 K/uL (1.20-3.40); Lymphocytes % (auto) 14.2 %; Mean Corpuscular Hemoglobin 29.3 pg (25.0-34.0); Mean Corpuscular Hgb Conc 33.2 g/dL (32.0-36.0); Mean Corpuscular Volume 88.3 fL (80.0-100.0); Mean Platelet Volume 10.1 fL (9.4-12.4); Monocytes # (auto) 0.93 K/uL (0.11-0.59); Monocytes % (auto) 8.1 %; Neutrophils # (auto) 8.83 K/uL (1.40-6.50); Neutrophils % (auto) 76.8 %; Platelet Count 211 K/uL (130-400); RDW Coefficient of Variation 13.1 % (11.5-14.5); RDW Standard Deviation 42.5 fL (36.4-46.3); Red Blood Count 4.88 M/uL (4.70-6.10); White Blood Count 11.51 K/ul (4.8-10.8)
[2024-03-10 05:35] LABS: BUN Creatinine Ratio 14.1 (10-20); Calcium 8.7 mg/dl (8.6-10.3); Chol HDL Ratio 4.5 (0-5); Est GFR (Non-African American) 118.2 ml/min; Magnesium 1.9 mg/dl (1.7-2.4); Phosphorus 2.8 mg/dl (2.5-4.9); Potassium 4.2 mmol/L (3.5-5.1); Troponin I High Sensitivity 18883.9 pg/ml (0-20)
[2024-03-10] MEDS: MAGNESIUM SULFATE / D5W 1 GM/100 ML BAG IV SCH (06:26)
--- NOTE | 2024-03-10 07:32 | Critical Care Progress Note ---
Date of Service March 10, 2024 Assessment & Plan (1) Acute VT: (2) CHRISTEL (obstructive sleep apnea): (3) Hypertension: (4) Smoker: Plan Reason Critically Ill: 43 YOM presents to the ICU post PCI and TANVI to diagnoal secondary to STEMI Neuro - NO acute needs CAM ICU: Negative Cardiac - Acute STEMI, HTN, HLD, CAD - Post PCI and TANVI to diagonal 03/09/2024 - BB, high intensity statin, JAY, initiated by cardiology service - DAPT therapy with ASA and Brilinta Respiratory - Smoker, CHRISTEL - Current smoker - will need smoking cessation - Educated on need to avoid smoking following TANVI -CHRISTEL - ON CPAP nasal 10CM H20 at home- patient reports he has not worn this in a long time- re-educated on overall mortality reduction --Recreational marijuana smoker Advised to quit GI - GERD - Continue PPI RENAL/LYTES - - ICU electrolyte protocol ENDO - ICU hyperglycemia protocol HEME - No acute needs ID - NO concern at this time for infective process --Prophylaxis VTE: None GI: Pantoprazole Lines: Peripheral Diet: Cardiac Plan: In/out: -900, urine output 1000 Risk factors for patient coronary artery disease include smoking, noncompliance with CHRISTEL as well as family history of heart problems in maternal grandfather. Continue to trend troponins till it starts to starts to downtrend Continue with dual antiplatelet therapy along with beta-brianna and lisinopril. Usually on amlodipine at home Disposition as per cardiology Please note the above document was generated using voice recognition software. It may contain grammatical, syntax or spelling errors.Any formal questions or concerns about the content, text or information contained within the body of this dictation should be directly addressed to the provider for clarification. Admission and Anticipated Discharge Date Admission Date: March 09, 2024 Subjective Patient seen and examined at bedside. No acute distress. Overnight patient had NSVT which resolved on its own. He complains of chest heaviness but no chest pain. No nausea vomiting. He was able to tolerate his breakfast. Denies any headache, no blurry vision. Review of Systems 2 Review of Systems: All systems reviewed & are unremarkable except as noted in Subjective Physical Exam 2 Physical Exam: Constitutional: No acute distress HEENT: EOMI, PERRLA Respiratory system: Good air entry bilaterally, no wheeze, minimal crackles bilaterally, mild right-sided rhonchi CVS: S1-S2 positive, no murmurs or gallops Abdomen: Soft, nontender, nondistended, positive bowel sounds x4 Extremities: +2 pulses bilaterally radialis/ dorsalis pedis, no cyanosis, no edema Neuro: Awake alert oriented x3 Psych: Normal mood and affect G/U: No Marks Skin: no rashes, warm and dry Lymphatic: no cervical or axillary lymphadenopathy Results & Data Results & Data Vital Signs (Past 12 Hours) Vital Signs Temp Pulse Resp BP BP Pulse Ox O2 Del Method 03/10/24 06:07 36.6 C 03/10/24 06:00 59 L 96 03/10/24 06:00 153/95 H 03/10/24 05:30 69 95 03/10/24 05:00 145/86 H 03/10/24 05:00 66 9 L 94 03/10/24 04:30 78 13 96 03/10/24 04:18 67 19 95 03/10/24 04:00 69 18 95 03/10/24 04:00 132/91 03/10/24 03:30 73 18 95 03/10/24 03:00 134/86 03/10/24 03:00 61 16 95 03/10/24 02:45 66 20 94 03/10/24 02:30 59 L 20 96 03/10/24 02:15 85 17 95 03/10/24 02:00 65 20 94 03/10/24 02:00 127/86 03/10/24 01:45 63 18 94 03/10/24 01:30 60 6 L 94 03/10/24 01:15 85 13 96 03/10/24 01:00 65 15 97 03/10/24 01:00 137/93 03/10/24 00:45 63 21 95 03/10/24 00:30 62 19 95 03/10/24 00:16 73 19 95 03/10/24 00:15 63 21 93 03/10/24 00:00 36.6 C 03/10/24 00:00 133/93 03/10/24 00:00 67 14 96 03/10/24 00:00 65 03/09/24 23:45 67 20 91 03/09/24 23:30 66 26 H 91 03/09/24 23:15 62 5 L 92 03/09/24 23:00 64 14 92 03/09/24 23:00 119/81 03/09/24 22:45 74 13 94 03/09/24 22:30 73 16 94 03/09/24 22:19 20 123/81 97 Room Air 03/09/24 22:15 76 17 96 03/09/24 22:01 81 23 98 03/09/24 22:01 123/81 03/09/24 22:00 80 24 97 03/09/24 21:45 77 18 98 03/09/24 21:30 72 19 97 03/09/24 21:15 75 16 96 03/09/24 21:00 124/84 03/09/24 21:00 80 14 95 03/09/24 20:47 90 10 L 03/09/24 20:46 137/95 FiO2 03/10/24 06:07 03/10/24 06:00 03/10/24 06:00 03/10/24 05:30 03/10/24 05:00 03/10/24 05:00 03/10/24 04:30 03/10/24 04:18 21 03/10/24 04:00 03/10/24 04:00 03/10/24 03:30 03/10/24 03:00 03/10/24 03:00 03/10/24 02:45 03/10/24 02:30 03/10/24 02:15 03/10/24 02:00 03/10/24 02:00 03/10/24 01:45 03/10/24 01:30 03/10/24 01:15 03/10/24 01:00 03/10/24 01:00 03/10/24 00:45 03/10/24 00:30 03/10/24 00:16 21 03/10/24 00:15 03/10/24 00:00 03/10/24 00:00 03/10/24 00:00 03/10/24 00:00 03/09/24 23:45 03/09/24 23:30 03/09/24 23:15 03/09/24 23:00 03/09/24 23:00 03/09/24 22:45 03/09/24 22:30 03/09/24 22:19 03/09/24 22:15 03/09/24 22:01 03/09/24 22:01 03/09/24 22:00 03/09/24 21:45 03/09/24 21:30 03/09/24 21:15 03/09/24 21:00 03/09/24 21:00 03/09/24 20:47 03/09/24 20:46 Laboratory Results 03/10/24 04:31 03/10/24 04:31 Coding Level of Care Code 81295 SUB INP/OBS CARE 2/35MIN Diagnoses Acute VT I21.9 CHRISTEL (obstructive sleep apnea) G47.33 Hypertension I10 Smoker F17.200
[2024-03-10 07:39] LABS: Estimated Average Glucose 103 mg/dl; Hemoglobin A1C 5.2 % (4.5-5.6)
--- NOTE | 2024-03-10 07:47 | XRay Report ---
XR chest 1V portable CLINICAL HISTORY: Chest pain, nonspecific COMPARISON STUDY: No previous studies for comparison. FINDINGS: Lung volumes are normal. Lungs are clear. There is no pneumothorax or pleural effusion. Car diac size is normal. Mediastinal contours are normal. Subtle interstitial thickening is noted with connelly btle Vincent B-lines. IMPRESSION: Findings suggestive of mild pulmonary edema. ACT 112: Negative or not required by law. Electronically signed by: Noam Vo M.D. 03/10/2024 7:46 AM
--- NOTE | 2024-03-10 08:33 | History & Physical Report ---
Date of Service March 09, 2024 Assessment & Plan (1) STEMI (ST elevation myocardial infarction): Plan: 43-year-old male with past medical history significant for impaired fasting glucose, obstructive sleep apnea noncompliant with CPAP, hypertension ongoing tobacco abuse presents with chest pain and found to have ST elevated AZ s/p cardiac cath and stent to proximal first diagonal. 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 Around 6:30 PM when he was sitting on a chair noticed chest pain in mid chest radiating into both arms and later to his jaw and neck 7/10 in severity. No sweating. No dizziness. No nausea. Has on and shortness of breath and attributes to smoking. And came to the ER and found to ST elevations in lead I and aVL. Currently s/p stent to proximal first diagonal. Resting comfortably. Currently chest pain resolved. Has mild headache. No blurred vision. No runny nose or sore throat. Has always has some cough from smoking. No fevers. No abdominal pain. Normal bowel and bladder movements. ST elevated AZ S/p cardiac cath and stent to proximal first diagonal Also has 30 to 40% stenosis in proximal LAD and 30% in mid circumflex On Brilinta, aspirin, lisinopril and metoprolol tartrate Will repeat cardiac enzymes and echo Cardiology on board Close monitoring ICU Impaired fasting glucose Will follow HbA1c levels Obstructive sleep apnea Noncompliant CPAP Needs counseling Hypertension Currently placed on lisinopril metoprolol Will monitor Tobacco abuse Needs counseling DVT prophylaxis SCDs for now Disposition Close monitoring ICU Level 1 full code Admission and Anticipated Discharge Date Admission Date: March 09, 2024 History of Present Illness Chief Complaint: ST elevated AZ Primary Care Provider: Cali Tang MD 43-year-old male with past medical history significant for impaired fasting glucose, obstructive sleep apnea noncompliant with CPAP, hypertension ongoing tobacco abuse presents with chest pain and found to have ST elevated AZ s/p cardiac cath and stent to proximal first diagonal. 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 Around 6:30 PM when he was sitting on a chair noticed chest pain in mid chest radiating into both arms and later to his jaw and neck 7/10 in severity. No sweating. No dizziness. No nausea. Has on and shortness of breath and attributes to smoking. And came to the ER and found to ST elevations in lead I and aVL. Currently s/p stent to proximal first diagonal. Resting comfortably. Currently chest pain resolved. Has mild headache. No blurred vision. No runny nose or sore throat. Has always has some cough from smoking. No fevers. No abdominal pain. Normal bowel and bladder movements. Past medical history as mentioned above. Past surgical history. Bilateral cataract surgery, excision of subcutaneous tumor in the pelvis. Social history. . Smokes 1 pack a day for last 25years. Alcohol rarely. No drug use. Family history. Mother had cancer. Father had diabetes. Paternal grandfather had diabetes. Allergies Allergy/AdvReac Type Severity Reaction Status Date / Time No Known Allergies Allergy Verified 12/06/22 17:44 Home Medications Medication Instructions Recorded Confirmed Type amlodipine 10 mg tablet 10 mg PO DAILY 12/06/22 12/06/22 History omeprazole magnesium 20 mg 20 mg PO DAILY PRN 12/06/22 12/06/22 History tablet,delayed release (Prilosec HEARTBURN/INDIGESTION OTC) ondansetron HCl 4 mg tablet 4 mg PO Q6H PRN nausea and 12/06/22 Rx vomiting #10 tabs ticagrelor 90 mg tablet (Brilinta) 90 mg PO BID #60 tabs 03/10/24 Rx Past Med/Surg History Medical History (Updated 03/10/24 @ 08:28 by Joe Rowley MD) Hypertension CHRISTEL (obstructive sleep apnea) GERD (gastroesophageal reflux disease) Abscess of left groin Family History (Updated 03/09/24 @ 21:06 by SUMANTH Andrea) Other Lung disease Myocardial infarction Social History Smoking Status: Current every day smoker Tobacco Type: Cigarettes Cigarettes Per Day: 20; Hx Alcohol Use: Yes Alcohol type: beer Hx Substance Use: No Preferred Language: [place] Diamond [employer] Polisher Required: No Beliefs That Will Affect Care: None Current Living Situation: Spouse and Family Feels Safe at Home: Yes Review of Systems Review of Systems: All systems reviewed & are unremarkable except as noted in HPI & below Physical Exam Physical Exam: General- Not in distress Head- atraumatic Eyes- PERRL, EOMI. ENT- oropharynx clear Neck- supple, no JVD. Lungs- clear to auscultation no wheezing or crackles. Heart- regular rhythm; no murmur, no gallop. Abdomen- normal bowel sounds, soft, nontender, no distension Extremities- no pretibial edema, no erythema see. Right wrist cath site no drainage or swelling seen. Neuro- alert, oriented PERRL, EOMI; no facial palsy; no dysarthria; moves extremities. Results & Data Results & Data Vital Signs (Past 12 Hours) Vital Signs Temp Pulse Resp BP Pulse Ox O2 Del Method 03/09/24 21:00 124/84 03/09/24 21:00 80 14 95 03/09/24 20:47 90 10 L 03/09/24 20:46 137/95 03/09/24 19:31 92 H 18 99 03/09/24 19:31 142/96 H 03/09/24 19:30 94 H 15 98 03/09/24 19:23 99 Room Air 03/09/24 19:20 100 H 22 99 03/09/24 19:18 97 H 13 99 03/09/24 19:18 157/90 H 03/09/24 19:18 98 H 03/09/24 18:59 99 H 22 99 Room Air 03/09/24 18:56 37 C 95 H 18 171/94 H 98 Room Air Diagnostic Findings Laboratory Results WBC 11.51 K/ul (4.8-10.8) H 03/10/24 04:31 RBC 4.88 M/uL (4.70-6.10) 03/10/24 04:31 Hgb 14.3 g/dl (14.0-18.0) 03/10/24 04:31 Hct 43.1 % (42.0-52.0) 03/10/24 04:31 MCV 88.3 fL (80.0-100.0) 03/10/24 04:31 MCH 29.3 pg (25.0-34.0) 03/10/24 04:31 MCHC 33.2 g/dL (32.0-36.0) 03/10/24 04:31 RDW Std Deviation 42.5 fL (36.4-46.3) 03/10/24 04:31 RDW Coeff of Evelyne 13.1 % (11.5-14.5) 03/10/24 04:31 Plt Count 211 K/uL (130-400) 03/10/24 04:31 MPV 10.1 fL (9.4-12.4) 03/10/24 04:31 Immature Gran % (Auto) 0.3 % 03/10/24 04:31 Neut % (Auto) 76.8 % 03/10/24 04:31 Lymph % (Auto) 14.2 % 03/10/24 04:31 Barren % (Auto) 8.1 % 03/10/24 04:31 Eos % (Auto) 0.3 % 03/10/24 04:31 Baso % (Auto) 0.3 % 03/10/24 04:31 Neut # (Auto) 8.83 K/uL (1.40-6.50) H 03/10/24 04:31 Lymph # (Auto) 1.64 K/uL (1.20-3.40) 03/10/24 04:31 Barren # (Auto) 0.93 K/uL (0.11-0.59) H 03/10/24 04:31 Eos # (Auto) 0.04 K/uL (0.00-0.50) 03/10/24 04:31 Baso # (Auto) 0.03 K/uL (0.00-0.20) 03/10/24 04:31 Immature Gran # (Auto) 0.04 K/uL (0.01-0.20) 03/10/24 04:31 Activ Coag Time Kaolin 233 SECONDS (94-140) H 03/09/24 20:26 Sodium 135 mmol/L (136-145) L 03/10/24 04:31 Potassium 4.2 mmol/L (3.5-5.1) D 03/10/24 04:31 Chloride 106 mmol/L (98-107) 03/10/24 04:31 Carbon Dioxide 23 mmol/L (21-32) 03/10/24 04:31 Anion Gap 6 (3-11) 03/10/24 04:31 BUN 9 mg/dl (6-23) 03/10/24 04:31 Creatinine 0.64 mg/dl (0.6-1.4) 03/10/24 04:31 Est Cr Clr Drug Dosing 176.0 ml/min 03/10/24 04:31 Est GFR ( Amer) 137.0 ml/min 03/10/24 04:31 Est GFR (Non-Af Amer) 118.2 ml/min 03/10/24 04:31 BUN/Creatinine Ratio 14.1 (10-20) 03/10/24 04:31 Glucose 109 mg/dl (70-99(Fasting)) H 03/10/24 04:31 POC Glucose 96 mg/dl (70-99) 03/10/24 07:30 Estimat Average Glucose 103 mg/dl 03/10/24 04:31 Hemoglobin A1c 5.2 % (4.5-5.6) 03/10/24 04:31 Calcium 8.7 mg/dl (8.6-10.3) 03/10/24 04:31 Phosphorus 2.8 mg/dl (2.5-4.9) 03/10/24 04:31 Magnesium 1.9 mg/dl (1.7-2.4) 03/10/24 04:31 Total Bilirubin 0.7 mg/dl (0.2-1.0) 03/09/24 19:04 AST 12 U/L (13-39) L 03/09/24 19:04 ALT 9 U/L (7-52) 03/09/24 19:04 Alkaline Phosphatase 51 U/L (34-104) 03/09/24 19:04 Troponin I High Sens 45173.9 pg/ml (0-20) H* D 03/10/24 04:31 Total Protein 7.4 gm/dl (6.0-8.3) 03/09/24 19:04 Albumin 4.6 gm/dl (3.4-5.0) 03/09/24 19:04 Globulin 2.8 gm/dl (2.5-4.0) 03/09/24 19:04 Albumin/Globulin Ratio 1.6 (0.9-2) 03/09/24 19:04 Triglycerides 84 mg/dl (0-150) 03/10/24 04:31 Cholesterol 153 mg/dl (0-200) 03/10/24 04:31 LDL Cholesterol, Calc 102 mg/dl 03/10/24 04:31 VLDL Cholesterol, Calc 17 mg/dl (0-30) 03/10/24 04:31 HDL Cholesterol 34 mg/dl 03/10/24 04:31 Cholesterol/HDL Ratio 4.5 (0-5) 03/10/24 04:31 Lipase 17 U/L (11-82) 03/09/24 19:04 Nasal Screen MRSA (PCR) Negative (Negative) 03/09/24 Unknown Impressions Chest X-Ray 03/09/24 18:59 XR chest 1V portable CLINICAL HISTORY: Chest pain, nonspecific COMPARISON STUDY: No previous studies for comparison. FINDINGS: Lung volumes are normal. Lungs are clear. There is no pneumothorax or pleural effusion. Cardiac size is normal. Mediastinal contours are normal. Subtle interstitial thickening is noted with subtle Vincent B-lines. IMPRESSION: Findings suggestive of mild pulmonary edema. ACT 112: Negative or not required by law. Electronically signed by: Noam Vo M.D. 03/10/2024 7:46 AM ECG Additional Comments: ECG. Normal sinus rhythm rate of 91. ST elevations in leads I and aVL ST depressions in lead III and aVF
[2024-03-10] MEDS: ASPIRIN 81 MG ECTAB PO SCH (08:38)
[2024-03-10] MEDS: ATORVASTATIN 40 MG TAB PO SCH (08:38)
[2024-03-10] MEDS: lisinopril 5 MG TAB PO SCH (08:38)
[2024-03-10] MEDS: PANTOprazole 40 MG TAB PO SCH (08:38)
[2024-03-10] MEDS: TICAGRELOR 90 MG TAB PO SCH (08:39)
--- NOTE | 2024-03-10 10:12 | Cardiology Progress Note ---
Date of Service March 10, 2024 Assessment & Plan (1) CAD (coronary artery disease): Plan: --single TANVI to D1 --mild nonculprit disease 2. Preserved LV function. 3. Hypertension 4. NSVT 5. Dyslipidemia Feeling well. No recurrent chest pain. Preserved LV function on echo. No signs of heart failure No access site complications. Intermittent NSVT overnight, this morning. Plan: -- Trend troponin until peak -- continue DAPT with ASA/Ticagrelor -- continue current lisinopril -- increase metoprolol to 25 mg BID -- continue current statin From a cardiac standpoint OK with transfer to telemetry today. Likely home tomorrow. Discussed smoking cessation and cardiac rehab as an outpatient Appreciate ICU and hospital medicine care. Admission and Anticipated Discharge Date Admission Date: March 09, 2024 Subjective Feeling well. No recurrent chest tightness. No palpitations or shortness of breath. Telemetry -- Frequent runs of NSVT. Review of Systems Review of Systems: All systems reviewed & are unremarkable except as noted in HPI & below Physical Exam Physical Exam: General: Comfortable HEENT: Sclerae anicteric Lungs: Clear to auscultation bilaterally, no crackles or wheezes Cardiac: regular, no murmurs Vascular: 2+ radial, no hematoma Abdomen: Soft Extremities: Well perfused, no peripheral edema Neuro: Nonfocal Psych: Alert orient x3, normal affect and mood Results & Data Vital Signs (Past 12 Hours) Vital Signs Temp Pulse Resp BP BP Pulse Ox O2 Del Method 03/10/24 08:00 80 11 L 130/87 95 Room Air 03/10/24 08:00 81 03/10/24 07:00 78 14 128/76 95 Room Air 03/10/24 06:07 97.9 F 03/10/24 06:00 59 L 96 03/10/24 06:00 153/95 H 03/10/24 05:30 69 95 03/10/24 05:00 145/86 H 03/10/24 05:00 66 9 L 94 03/10/24 04:30 78 13 96 03/10/24 04:18 67 19 95 03/10/24 04:00 69 18 95 03/10/24 04:00 132/91 03/10/24 03:30 73 18 95 03/10/24 03:00 134/86 03/10/24 03:00 61 16 95 03/10/24 02:45 66 20 94 03/10/24 02:30 59 L 20 96 03/10/24 02:15 85 17 95 03/10/24 02:00 65 20 94 03/10/24 02:00 127/86 03/10/24 01:45 63 18 94 03/10/24 01:30 60 6 L 94 03/10/24 01:15 85 13 96 03/10/24 01:00 65 15 97 03/10/24 01:00 137/93 03/10/24 00:45 63 21 95 03/10/24 00:30 62 19 95 03/10/24 00:16 73 19 95 03/10/24 00:15 63 21 93 03/10/24 00:00 97.9 F 03/10/24 00:00 133/93 03/10/24 00:00 67 14 96 03/10/24 00:00 65 03/09/24 23:45 67 20 91 03/09/24 23:30 66 26 H 91 03/09/24 23:15 62 5 L 92 03/09/24 23:00 64 14 92 03/09/24 23:00 119/81 03/09/24 22:45 74 13 94 03/09/24 22:30 73 16 94 03/09/24 22:19 20 123/81 97 Room Air 03/09/24 22:15 76 17 96 FiO2 03/10/24 08:00 03/10/24 08:00 03/10/24 07:00 03/10/24 06:07 03/10/24 06:00 03/10/24 06:00 03/10/24 05:30 03/10/24 05:00 03/10/24 05:00 03/10/24 04:30 03/10/24 04:18 21 03/10/24 04:00 03/10/24 04:00 03/10/24 03:30 03/10/24 03:00 03/10/24 03:00 03/10/24 02:45 03/10/24 02:30 03/10/24 02:15 03/10/24 02:00 03/10/24 02:00 03/10/24 01:45 03/10/24 01:30 03/10/24 01:15 03/10/24 01:00 03/10/24 01:00 03/10/24 00:45 03/10/24 00:30 03/10/24 00:16 21 03/10/24 00:15 03/10/24 00:00 03/10/24 00:00 03/10/24 00:00 03/10/24 00:00 03/09/24 23:45 03/09/24 23:30 03/09/24 23:15 03/09/24 23:00 03/09/24 23:00 03/09/24 22:45 03/09/24 22:30 03/09/24 22:19 03/09/24 22:15 PG Care Time/CCT Total # of Minutes Spent Total Time Spent with Patient: Total time spent is greater than 50% in coordination of care (as documented) at patient's floor/unit and/or counseling patient: Coding Level of Care Code 30884 SUB INP/OBS CARE 3/50MIN Diagnoses CAD (coronary artery disease) I25.10
[2024-03-10] MEDS: METOPROLOL TARTRATE 25 MG TAB PO ONE (11:21)
--- NOTE | 2024-03-10 12:36 | Electrocardiogram Report ---
Test Reason : Blood Pressure : / mmHG Vent. Rate : 084 BPM Atrial Rate : 084 BPM P-R Int : 118 ms QRS Dur : 090 ms QT Int : 360 ms P-R-T Axes : 057 052 013 degrees QTc Int : 425 ms Normal sinus rhythm Lateral injury pattern Inferior ST depression * ACUTE ME No previous ECGs available Confirmed by Jaswant Trinh ([id number]) on 03/10/2024 12:35:45 PM Referred By: REFERRED SELF Confirmed By:Jaswant Trinh
--- NOTE | 2024-03-10 12:37 | Electrocardiogram Report ---
Test Reason : Blood Pressure : / mmHG Vent. Rate : 091 BPM Atrial Rate : 091 BPM P-R Int : 122 ms QRS Dur : 092 ms QT Int : 348 ms P-R-T Axes : 048 043 -01 degrees QTc Int : 428 ms Normal sinus rhythm Inferior ST depression Lateral injury pattern ACUTE IN / STEMI Abnormal ECG When compared with ECG of 09-MAR-2024 19:01, (unconfirmed) No significant change was found Confirmed by Jaswant Trinh ([id number]) on 03/10/2024 12:36:35 PM Referred By: REFERRED SELF Confirmed By:Jaswant Trinh
--- NOTE | 2024-03-10 12:37 | Electrocardiogram Report ---
Test Reason : Blood Pressure : / mmHG Vent. Rate : 075 BPM Atrial Rate : 075 BPM P-R Int : 124 ms QRS Dur : 086 ms QT Int : 388 ms P-R-T Axes : 058 065 053 degrees QTc Int : 433 ms Sinus rhythm with occasional Premature ventricular complexes Septal infarct (cited on or before 09-MAR-2024) Abnormal ECG When compared with ECG of 09-MAR-2024 19:22, (unconfirmed) Premature ventricular complexes are now Present ST no longer depressed in Inferior leads ST no longer depressed in Anterior leads T wave inversion no longer evident in Inferior leads Confirmed by Jaswant Trinh ([id number]) on 03/10/2024 12:37:05 PM Referred By: REFERRED SELF Confirmed By:Jaswant Trinh
--- NOTE | 2024-03-10 13:52 | XCELERA ---
[id number] \\[id number]
--- NOTE | 2024-03-10 14:38 | Hospitalist Progress Note ---
Date of Service March 10, 2024 Assessment & Plan (1) STEMI (ST elevation myocardial infarction): Plan: Mr. Douglas is a 43-year-old male with past medical history significant for impaired fasting glucose, obstructive sleep apnea noncompliant with CPAP, hypertension, ongoing tobacco abuse admitted for management of STEMI now s/p TANVI to proximal first diagonal with CAD in LAD and LCx. Patient doing well, but telemetry with ectopy overnight. Downgraded from ICU, but remains admitted for telemetry monitoring and medication titration. #STEMI #Occlusive CAD s/p stent 03/09 S/p cardiac cath and stent to proximal first diagonal Also has 30 to 40% stenosis in proximal LAD and 30% in mid circumflex On Brilinta, aspirin, lisinopril and metoprolol tartrate Cardiology on consult downgrade from ICU Monitor on tele given intermittent NSVT Troponin peaked at 18K Metoprolol increased #Impaired fasting glucose A1C 5.2% #Obstructive sleep apnea Noncompliant CPAP encouraged use #Hypertension Currently placed on lisinopril metoprolol discontinue home amlodipine #Tobacco abuse Needs counseling prior to dispo DVT prophylaxis SCDs for now Disposition Dispo likely 1-2 days Admission and Anticipated Discharge Date Admission Date: March 09, 2024 Subjective s/p TANVI in the evening, telemetry with ectopy; no chest pain or palpitations Patient evaluated this afternoon Reports feeling well and denies any new concerns Physical Exam Constitutional: WD/WN, vitals as above Respiratory: normal respiratory effort, lungs clear to auscultation Cardiovascular: RRR, no murmur, no edema Results & Data Results & Data Vital Signs (Past 12 Hours) Vital Signs Temp Pulse Resp BP Pulse Ox O2 Del Method FiO2 03/10/24 11:00 76 17 132/87 96 Room Air 03/10/24 09:00 72 18 140/82 94 Room Air 03/10/24 08:00 80 11 L 130/87 95 Room Air 03/10/24 08:00 81 03/10/24 07:00 78 14 128/76 95 Room Air 03/10/24 06:07 36.6 C 03/10/24 06:00 59 L 96 03/10/24 06:00 153/95 H 03/10/24 05:30 69 95 03/10/24 05:00 145/86 H 03/10/24 05:00 66 9 L 94 03/10/24 04:30 78 13 96 03/10/24 04:18 67 19 95 21 03/10/24 04:00 69 18 95 03/10/24 04:00 132/91 03/10/24 03:30 73 18 95 03/10/24 03:00 134/86 03/10/24 03:00 61 16 95 03/10/24 02:45 66 20 94 Laboratory Results Short CBC 03/09/24 03/10/24 Range/Units 19:04 04:31 WBC 9.39 11.51 H (4.8-10.8) K/ul Hgb 15.0 14.3 (14.0-18.0) g/dl Hct 44.0 43.1 (42.0-52.0) % Plt Count 233 211 (130-400) K/uL BMP 03/09/24 03/10/24 19:04 04:31 Sodium 136 135 L Potassium 3.3 L 4.2 D Chloride 101 106 Carbon Dioxide 26 23 BUN 10 9 Creatinine 0.78 0.64 Glucose 106 H 109 H Calcium 9.1 8.7 Liver Function 03/09/24 Range/Units 19:04 Total Bilirubin 0.7 (0.2-1.0) mg/dl AST 12 L (13-39) U/L ALT 9 (7-52) U/L Alkaline Phosphatase 51 (34-104) U/L Albumin 4.6 (3.4-5.0) gm/dl Medications Administered Home Medications Medication Instructions Recorded Confirmed Last Taken amlodipine 10 mg tablet 10 mg PO DAILY 12/06/22 12/06/22 12/06/22 omeprazole magnesium 20 mg 20 mg PO DAILY PRN 12/06/22 12/06/22 Unknown tablet,delayed release (Prilosec HEARTBURN/INDIGESTION OTC) ondansetron HCl 4 mg tablet 4 mg PO Q6H PRN nausea and 12/06/22 Unknown vomiting #10 tabs ticagrelor 90 mg tablet (Brilinta) 90 mg PO BID #60 tabs 03/10/24 Unknown Active Medications Generic Name Dose Route Start Last Admin Trade Name Freq PRN Reason Stop Dose Admin Aspirin 81 mg 03/10/24 09:00 03/10/24 08:38 Aspirin 81 Mg Ectab PO 04/09/24 08:59 81 mg QAM PARKER Administration Atorvastatin Calcium 80 mg 03/10/24 09:00 03/10/24 08:38 Atorvastatin 40 Mg Tab PO 04/09/24 08:59 80 mg QAM PARKER Administration Lisinopril 5 mg 03/10/24 09:00 03/10/24 08:38 Lisinopril 5 Mg Tab PO 04/09/24 08:59 5 mg QAM PARKER Administration Pantoprazole Sodium 40 mg 03/10/24 09:00 03/10/24 08:38 Pantoprazole 40 Mg Tab PO 04/09/24 08:59 40 mg QAM PARKER Administration Ticagrelor 90 mg 03/10/24 09:00 03/10/24 08:39 Ticagrelor 90 Mg Tab PO 04/09/24 08:59 90 mg BID PARKER Administration
[2024-03-10] MEDS: METOPROLOL TARTRATE 25 MG TAB PO SCH (20:27)
--- OUTSIDE RECORDS SUMMARY | 2024-03-11 03:56 | External Medical Summary | Summary of Care ---
Author Name Unknown Organization [facility] Address [address] [place] [address] Phone [phone] Care Team Providers Care Kosher Butcher Name Role Phone Corey Tang MD Primary Care Provider [phone] Reason for Visit * Reason Comments eRx-Medication Refill Encounter Details Date Type Department Care Team (Late st Contact Info) Description 02/26/2024 Refill [facility] [address] [place] [address] Corey Tang MD [address] [place] [address] HTN, goal below 130/80 Allergies No known active allergiesdocumented as of this encounter (statuses as of 02/26/2024) Medications Medication Sig Dispensed Refills Start Date End Date Status Ondansetron HCl 4 MG Oral Tablet (Zofran)Indicatio ns:Nausea and vomiting, unspecified vomiting type Take 1 Tablet by mouth every 6 hours as needed for Nausea. 20 Tablet 0 12/07/2022 Active Omeprazole 10 MG Oral Capsule Delayed Release (Prilosec) 2 Capsules. 0 12/06/2022 Active Nicotine 21 MG/24HR Transdermal Patch 24 Hour (Nicoderm CQ) Place 1 Patch over 24 hours topically on the skin in the morning. On upper body/upper arm, change once a day for 6 weeks.. 42 Patch 1 05/21/2023 Active amLODIPine Besylate 10 MG Oral Tablet (Norvasc)Indicati ons:HTN, goal below 130/80 TAKE 1 TABLET BY MOUTH ONCE DAILY 90 Tablet 0 02/26/2024 Active amLODIPine Besylate 10 MG Oral Tablet (Norvasc)Indicati ons:HTN, goal below 130/80 TAKE 1 TABLET BY MOUTH ONCE DAILY 90 Tablet 1 08/12/2023 4 Discontinued documented as of this encounter (statuses as of 02/26/2024) Active Problems Problem Noted Date Diagnosed Date Nocturnal hypoxemia 08/03/2019 Overweight (BMI 25.0-29.9) 08/02/2019 HTN, goal below 130/80 01/27/2019 IFG (impaired fasting glucose) 01/27/2019 Deviated nasal septum 01/11/2019 Witnessed apneic spells 01/11/2019 Tobacco use disorder 01/11/2019 Overview: Refuses pneumovax Status post cataract extract ion of both eyes with insertion of intraocular lens 01/11/2019 Sebaceous cyst 03/06/2015 documented as of this encounter (statuses as of 02/26/2024) Resolved Problems Problem Noted Date Diagnosed Date Resolved Date CHRISTEL on CPAP 08/02/2019 05/21/2023 Snoring 01/11/2019 05/21/2023 Obesity, Class I, BMI 30.0-3 4.9 (see actual BMI) 01/11/2019 08/02/2019 documented as of this encounter (statuses as of 02/26/2024) Immunizations Name Administration Dates Next Due COVID-19 mRNA, LNP-s, No Pre serve, 2-Dose Series ([facility]) 02/01/2021,01/13/2021 Seasonal Influenza, PF, 6 M & above, IM , (FluLaval or Fluzone) 09/15/2020,08/15/2018 TDAP (age 10 and older)(Boostrix) 01/06/2019 documented as of this encounter Social History Tobacco Use Types Packs/Day Years Used Date Smoking Tobacco: Every Day Cigarettes 1 25 Smokeless Tobacco: Never Alcohol Use Standard Drinks/Week Comments Not Currently 0 (1 standard drink = 0.6 oz pure alcohol) Twice a year as stated by pt 01/06/2019. PHQ-2 Answer Date Recorded PHQ-2 Score -1 01/27/2019 Sex and Gender Information Value Date Recorded Sex Assigned at Male 08/02/2019 4:39 PM EDT Gender Identity Male 08/02/2019 4:39 PM EDT Sexual Orientation Straight 08/02/2019 4: 39 PM EDT Job Start Date Occupation Industry Not on file Not on file Not on file documented as of this encounter Miscellaneous Notes * Telephone Encounter - George Cobian [facility] - 02/26/2024 7:06 AM EDT Signed Prescriptions: Disp Refills amLODIPine Besylate 10 MG Oral Tablet (Nor*90 Tab*0 Sig: TAKE 1 TABLET BY MOUTH ONCE DAILYAuthorizing Provider: COREY TANG User: GEORGE COBIAN--- documented in this encounter Plan of Treatment Upcoming Encounters Date Type Department Care Team (Late st Contact Info) Description 05/22/2024 8:00 AM EDT Office Visit [facility] [address] [place] [address] Corey Tang MD [address] [place] [address] Health Maintenance Due Date Last Done Comments Pneumococcal Vaccine: Pediatrics (0 to 5 Years) and At-Risk Patients (6 to 64 Years) (1 of 2 - PCV) 1984 HIV Screening 1993 Hepatitis C Screening 1996 Hepatitis B (1 of 3 - 19+ 3-dose series) 1997 Depression Screening 01/28/2020 01/27/2019 Cologuard 2023 Colonoscopy 2023 Colorectal Cancer Screening 2023 Fecal Occult Blood Test 2023 Sigmoidoscopy 2023 COVID-19 Vaccine (3 - 2022-2 4 season) 2023 02/01/2021, 01/13/2021 GFR 05/17/2024 05/17/2023, 01/07/2019 Influenza Vaccine (FLU shot) (Season Ended) 2024 09/15/2020, 08/15/2018 Albumin/Creatinine Ratio 05/17/2026 023, 01/07/2019 Diabetes Screening 05/21/2026 05/21/2023, 05/17/2023, 01/07/2019 Lipid Panel 05/17/2028 05/17/2023, 01/07/2019 DTaP,Tdap,and Td Vaccines (2 - Td or Tdap) 01/06/2029 01/06/2019 GARDASIL-HPV IMMUNIZATION SERIES Aged Out No longer eligible b ased on patient's age to complete this topic MENINGOCOCCAL (MENACTRA/MENVEO) Aged Out No longer eligible b ased on patient's age to complete this topic documented as of this encounter Medical Devices Implanted Type Area [employer]ractory [employer]ile Repairer Device Identifier Shelf Expiration Date Model / Serial / Lot Lens Intraoc 20.5 - [id number] - [id number] Implanted:Qty: 1 on 01/17/2019 by Santos Smith MD at [facility] Left: Eye [employer] 08/14/2023 [id number] / [id number] / Lens Intraoc 21.5 - [id number] - [id number] Implanted:Qty: 1 on 01/24/2019 by Santos Smith MD at [facility] Right: Eye [employer] 08/14/2023 [id number] / [id number] / [id number] documented as of this encounter Visit Diagnoses Diagnosis HTN, goal below 130/80 Unspecified essential hypertension documented in this encounter Care Teams Kosher Butcher Relationship Specialty Start Date End Date Corey Tang MD [address] [place] [facility] [place] [address] PCP - General Family Medicine 09/17/20 documented as of this encounter
[2024-03-11 05:01] LABS: BUN Creatinine Ratio 17.1 (10-20); Calcium 8.3 mg/dl (8.6-10.3); Creatinine Clr Calc Pharmacy 148.2 ml/min; Est GFR (African American) 127.7 ml/min; Est GFR (Non-African American) 110.2 ml/min; Magnesium 2.1 mg/dl (1.7-2.4); Potassium 4.1 mmol/L (3.5-5.1)
--- NOTE | 2024-03-11 10:46 | Cardiology Progress Note ---
Date of Service March 11, 2024 Assessment & Plan (1) CAD (coronary artery disease): Plan: --single TANVI to D1 --mild nonculprit disease 2. Preserved LV function. 3. Hypertension 4. NSVT 5. Dyslipidemia Feeling well. No recurrent chest pain. Trop peaked. No ventricular ectopy. No access site complications. From a cardiac standpoint OK with discharge this morning. -- Home on DAPT with ASA/Ticagrelor -- continue current lisinopril. Transition to toprol XL 50mg daily -- continue current statin -- Discussed dietary changes, smoking cessation. Follow-up in 1-2 weeks with me. Discussed cardiac rehab as an outpatient Admission and Anticipated Discharge Date Admission Date: March 09, 2024 Subjective Feeling well. No issues overnight. No chest pain. Telemetry reviewed -- no further ectopy overnight. Review of Systems Review of Systems: All systems reviewed & are unremarkable except as noted in HPI & below Physical Exam Physical Exam: General: Comfortable HEENT: Sclerae anicteric Lungs: Clear to auscultation Cardiac: regular, no murmurs Vascular: 2+ radial, no hematoma Abdomen: Soft Extremities: Well perfused, no peripheral edema Neuro: Nonfocal Psych: Alert orient x3, normal affect and mood Results & Data Vital Signs (Past 12 Hours) Vital Signs Temp Pulse Pulse Resp BP BP Pulse Ox 03/11/24 08:00 03/11/24 08:00 98.6 F 69 18 125/81 95 03/11/24 08:00 66 03/11/24 06:00 66 20 03/11/24 05:00 55 L 18 03/11/24 04:26 75 17 03/11/24 04:26 101/64 03/11/24 04:00 55 L 19 03/11/24 04:00 98.8 F 03/11/24 03:00 54 L 0 L 03/11/24 02:38 76 18 96 03/11/24 02:00 53 L 24 03/11/24 01:11 115/73 03/11/24 01:11 20 03/11/24 01:00 21 03/11/24 00:00 63 14 03/11/24 00:00 98.8 F 03/10/24 23:00 53 L 8 L O2 Del Method 03/11/24 08:00 Room Air 03/11/24 08:00 Room Air 04/27/24 08:00 03/11/24 06:00 03/11/24 05:00 03/11/24 04:26 03/11/24 04:26 03/11/24 04:00 03/11/24 04:00 03/11/24 03:00 03/11/24 02:38 03/11/24 02:00 03/11/24 01:11 03/11/24 01:11 03/11/24 01:00 03/11/24 00:00 03/11/24 00:00 03/10/24 23:00 PG Care Time/CCT Total # of Minutes Spent Total Time Spent with Patient: Total time spent is greater than 50% in coordination of care (as documented) at patient's floor/unit and/or counseling patient: Coding Level of Care Code 70157 SUB INP/OBS CARE 2/35MIN Diagnoses CAD (coronary artery disease) I25.10
--- NOTE | 2024-03-11 10:53 | Discharge Summary ---
Discharge Summary Date of Service March 11, 2024 Notes For Next Care Provider Medication Changes From Visit Discontinued amlodipine Start: -Lisinopril 5mg daily -Atorvastatin 80mg daily -Metoprolol 50mg XL daily -Brilinta 90mg BID (25$ copay) -ASA daily Admission HPI Per Admitting Provider 43-year-old male with past medical history significant for impaired fasting gluc ose, obstructive sleep apnea noncompliant with CPAP, hypertension ongoing tobacco abuse presents with chest pain and found to have ST elevated AR s/p cardiac cath and stent to proximal first diagonal. 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 Around 6:30 PM when he was sitting on a chair noticed chest pain in mid chest radiating into both arms and later to his jaw and neck 7/10 in severity. No sweating. No dizziness. No nausea. Has on and shortness of breath and attributes to smoking. And came to the ER and found to ST elevations in lead I and aVL. Currently s/p stent to proximal first diagonal. Resting comfortably. Currently chest pain resolved. Has mild headache. No blurred vision. No runny nose or sore throat. Has always has some cough from smoking. No fevers. No abdominal pain. Normal bowel and bladder movements. Past medical history as mentioned above. Past surgical history. Bilateral cataract surgery, excision of subcutaneous tumor in the pelvis. Social history. . Smokes 1 pack a day for last 25years. Alcohol rarely. No drug use. Family history. Mother had cancer. Father had diabetes. Paternal grandfather had diabetes. Admission Exam Per Admitting Provider General- Not in distress Head- atraumatic Eyes- PERRL, EOMI. ENT- oropharynx clear Neck- supple, no JVD. Lungs- clear to auscultation no wheezing or crackles. Heart- regular rhythm; no murmur, no gallop. Abdomen- normal bowel sounds, soft, nontender, no distension Extremities- no pretibial edema, no erythema see. Right wrist cath site no drainage or swelling seen. Neuro- alert, oriented PERRL, EOMI; no facial palsy; no dysarthria; moves extremities. Principal Dx & Hospital Course #1 = Principal Diagnosis (1) STEMI (ST elevation myocardial infarction): Mr. Douglas is a 43-year-old male with past medical history significant for impaired fasting glucose, obstructive sleep apnea noncompliant with CPAP, hypertension, ongoing tobacco abuse admitted for management of STEMI now s/p TANVI to proximal first diagonal with CAD in LAD and LCx. Patient doing well, but telemetry with ectopy overnight. Downgraded from ICU, but remains admitted for telemetry monitoring and medication titration. #STEMI #Occlusive CAD s/p stent 03/09 S/p cardiac cath and stent to proximal first diagonal Also has 30 to 40% stenosis in proximal LAD and 30% in mid circumflex On Brilinta, aspirin, lisinopril and metoprolol tartrate Cardiology on consult Intermittent NSVT noted post cath Metoprolol tartrate transitioned to Succinate 50XL on discharge Discontinue home amlodipine and discharged with lisinopril, statin, brilinta and asa #Impaired fasting glucose A1C 5.2% #Obstructive sleep apnea Noncompliant CPAP encouraged use #Hypertension Currently placed on lisinopril metoprolol discontinue home amlodipine #Tobacco abuse Discussed cessation, patient not agreeable to pharmacologic agents at this time for cessation Discharge Exam Constitutional WD/WN, vitals as above Respiratory normal respiratory effort, lungs clear to auscultation Cardiovascular RRR, no murmur, no edema Updated Medication List Medication Instructions Recorded Confirmed Type omeprazole magnesium 20 mg 20 mg PO DAILY PRN 12/06/22 12/06/22 History tablet,delayed release (Prilosec HEARTBURN/INDIGESTION OTC) ondansetron HCl 4 mg tablet 4 mg PO Q6H PRN nausea and 12/06/22 Rx vomiting #10 tabs ticagrelor 90 mg tablet (Brilinta) 90 mg PO BID #60 tabs 03/10/24 Rx aspirin 81 mg tablet,delayed 81 mg PO QAM #30 tabs 03/11/24 Rx release atorvastatin 40 mg tablet 80 mg (2 x 40 mg) PO QAM #30 tabs 03/11/24 Rx lisinopril 5 mg tablet (Zestril) 5 mg PO QAM #30 tabs 03/11/24 Rx metoprolol succinate 50 mg 50 mg PO DAILY #30 tabs 03/11/24 Rx tablet,extended release 24 hr Hospital Stay Data Consultations 03/09/24 19:16 Consult Cardiac Catheterization Stat 03/09/24 19:35 ED Decision to Admit Stat 03/09/24 20:48 Consult Cardiology Routine 03/09/24 20:49 Consult Senior Quality Control Technician Routine Procedures Performed Operation Date: 03/09/24 19:45 Actual Procedures p Aspiration/PCI w/TANIV for Stemi - Tucker Gabriel MD s Cineradiography w/Routine Exam - Tucker Gabriel MD s Drug Eluting Stent SGl Vessel - MD jeni Brown Ultrasound Vascular Access - Tucker Gabriel MD Diagnostic Imagining Performed 03/09/24 19:32 CL Cath Imgs for PACS use only Stat Pending Results Patient Have Any Pending Studies at Discharge: No Discharge Instructions Given to Patient (Per Discharging Provider) You were admitted for chest pain and found to have coronary artery disease requiring a stent to be place to return blood flow to heart muscle. You will need to continue dual antiplatelet therapy until told otherwise by your [employer] Stripper -Brilinta 90mg two times a day -Aspirin 81mg daily This will help keep the stent open. Please do not stop this combination unless your [employer] Stripper instructs you to do so. The following medications were added: -Lisinopril 5mg daily for blood pressure -Atorvastatin 80mg daily for cholesterol and for vessel inflammation -Metoprolol 50mg XL daily for heart rate Please discontinue amlodipine. Please consider smoking cessation to further help your heart and prevent further cardiac events. Total Time Total Time Spent Total Time Spent (In Minutes): 45
== END 2024-03-11 11:50 | disposition home or self-care (01) | DRG 322 ==
LOC: ED 18:54 → SUATTDRO 19:43 → CC 19:44 → 1E 19:45 → CC 20:01
DX: F17.210 Nicotine dependence, cigarettes, uncomplicated; Z91.199 Patient's noncompliance with other medical treatment and regimen due to unspecified reason; I47.20 Ventricular tachycardia, unspecified; I25.10 Atherosclerotic heart disease of native coronary artery without angina pectoris; R73.01 Impaired fasting glucose; I21.29 ST elevation (STEMI) myocardial infarction involving other sites; G47.33 Obstructive sleep apnea (adult) (pediatric); K21.9 Gastro-esophageal reflux disease without esophagitis; Z82.49 Family history of ischemic heart disease and other diseases of the circulatory system; I10 Essential (primary) hypertension; Z79.899 Other long term (current) drug therapy